=== PATIENT | male | born 1965 | race Caucasian/White ===

== ENCOUNTER 2016-08-29 18:15 | Emergency (ER) | payer BC ==
[~2016-08-29] VITALS: Ht 185.4 cm; Wt 108.9 kg
[2016-08-29 18:15] VITALS: BP 155/111; PULSE 77; RESP 18; TEMP 97.7; O2SAT 96
--- NOTE | 2016-08-29 18:15 | NUR ---
BROUGHT BACK TO BED #4 AND TRIAGED. EVALUATED BY ROSAURA DELA CRUZ, REPORT GIVEN TO ZEN
[2016-08-29] MEDS ORDERED: KETOROLAC TROMETHAMINE 60 MG/2 ML VIAL IM ONE (18:30)
--- NOTE | 2016-08-29 18:50 | NUR ---
Patient transported to radiology via ambulation, accompanied by rad staff.
--- NOTE | 2016-08-29 18:57 | NUR ---
RETURNED TO BED SAFELY
--- NOTE | 2016-08-29 19:15 | NUR ---
Received report from Dariel BLAIR, care endorsed.
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
[2016-08-29] MEDS ORDERED: HYDROcodone/ACETAMIN 10-325 MG TAB PO ONE (20:00)
[2016-08-29 20:30] VITALS: BP 135/95; PULSE 79; RESP 18; TEMP 98; O2SAT 97
--- NOTE | 2016-08-29 20:30 | NUR ---
Patient given written and verbal discharge instructions and verbalizes understanding. ER MD discussed with patient the results and treatment provided. Patient in stable condition. ID arm band removed. Rx of MOTRIN AND NORCO given. Patient educated on pain management and to follow up with PMD. Pain Scale 2/10. Opportunity for questions provided and answered.
== END 2016-08-29 20:30 | disposition home or self-care (01) ==
LOC: SED 18:15
DX: S22.32XA Fracture of one rib, left side, initial encounter for closed fracture (principal); I10 Essential (primary) hypertension; W20.8XXA Other cause of strike by thrown, projected or falling object, initial encounter; Y93.89 Activity, other specified; Y92.89 Other specified places as the place of occurrence of the external cause; Y99.0 Civilian activity done for income or pay
CPT/HCPCS: 71010; 71100; 94010; 96372; 99284; J1885

== ENCOUNTER 2021-08-01 14:45 | Emergency (ER) | payer BC, SELFPAY ==
[~2021-08-01] VITALS: Ht 185.4 cm; Wt 131.5 kg
[2021-08-01 15:11] VITALS: BP_SYST 109
[2021-08-01 15:41] LABS: BASOPHILS % (AUTO) 0.4 % (0.0-2.0); EOSINOPHILS # (AUTO) 0.1 K/uL (0.0-0.4); EOSINOPHILS % (AUTO) 1.4 % (0.0-4.0); HEMATOCRIT 45.2 % (36-54); LYMPHOCYTES # (AUTO) 1.3 K/uL (1.0-5.5); LYMPHOCYTES % (AUTO) 21.6 % (20.5-51.5); MEAN CORPUSCULAR HEMOGLOBIN 31 pg (27-31); MEAN CORPUSCULAR HGB CONC 33 % (32-36); MEAN CORPUSCULAR VOLUME 92 fL (79.0-98.0); MONOCYTES # (AUTO) 0.5 K/uL (0.0-1.0); MONOCYTES % (AUTO) 7.5 % (1.7-9.3); NEUTROPHILS # (AUTO) 4.2 K/uL (1.8-7.7); NEUTROPHILS % (AUTO) 69.1 % (40.0-70.0); PLATELET COUNT (AUTO) 232 K/uL (130-430); RED BLOOD CELL COUNT(AUTO) 4.89 MIL/uL (4.2-6.2); RED CELL DISTRIBUTION WIDTH 13.9 % (9.0-15.0); WHITE BLOOD COUNT (AUTO) 6.1 K/uL (4.8-10.8)
[2021-08-01 16:07] LABS: CALCIUM 8.7 mg/dL (8.4-11.0); CREATININE 1.08 mg/dL (0.55-1.30); POTASSIUM 4.1 mmol/L (3.5-5.1)
[2021-08-01 16:12] LABS: ALBUMIN 3.2 g/dL (3.4-4.8); TOTAL BILIRUBIN 0.2 mg/dL (0.0-1.0)
[2021-08-01 16:30] VITALS: BP_SYST 147
== END 2021-08-01 16:30 | disposition home or self-care (01) ==
LOC: SED 14:45
DX: R55 Syncope and collapse (principal); I10 Essential (primary) hypertension
CPT/HCPCS: 36415; 71045; 80053; 84484; 85025; 93005; 99285

== ENCOUNTER 2023-04-15 13:38 | Inpatient (IN) | payer BC ==
[~2023-04-15] VITALS: Ht 185.4 cm; Wt 120.2 kg
[2023-04-15 14:00] VITALS: BP_SYST 117; PULSE 83; RESP 16; TEMP 97.7; O2SAT 94
[2023-04-15] MEDS ORDERED: ALBUTEROL SULFATE 0.083% 2.5 MG/3 ML VIAL.NEB INH ONE (14:30)
[2023-04-15] MEDS ORDERED: BENZONATATE 100 MG CAPSULE (TESSALON) PO ONE (14:30)
[2023-04-15] MEDS ORDERED: KETOROLAC TROMETHAMINE 30 MG VIAL IM ONE (14:30)
[2023-04-15 14:56] LABS: INFLUENZA TYPE A Negative (NEGATIVE); INFLUENZA TYPE B NEGATIVE (NEGATIVE)
[2023-04-15 15:14] LABS: BASOPHILS % (AUTO) 0.6 % (0.0-2.0); EOSINOPHILS # (AUTO) 0.1 K/uL (0.0-0.4); EOSINOPHILS % (AUTO) 1.6 % (0.0-4.0); HEMATOCRIT 49.4 % (36-54); HEMOGLOBIN 15.9 g/dL (14.0-18.0); LYMPHOCYTES # (AUTO) 1.6 K/uL (1.0-5.5); LYMPHOCYTES % (AUTO) 28.5 % (20.5-51.5); MEAN CORPUSCULAR HEMOGLOBIN 30 pg (27-31); MEAN CORPUSCULAR HGB CONC 32 % (32-36); MEAN CORPUSCULAR VOLUME 93 fL (79.0-98.0); MONOCYTES # (AUTO) 0.9 K/uL (0.0-1.0); MONOCYTES % (AUTO) 15.2 % (1.7-9.3); NEUTROPHILS # (AUTO) 3.1 K/uL (1.8-7.7); NEUTROPHILS % (AUTO) 54.1 % (40.0-70.0); PLATELET COUNT (AUTO) 281 K/uL (130-430); RED CELL DISTRIBUTION WIDTH 13.7 % (9.0-15.0); WHITE BLOOD COUNT (AUTO) 5.7 K/uL (4.8-10.8)
[2023-04-15 15:15] LABS: ABG O2 SAT% ESTIMATE 94.7 % (94.0-100.0); BLOOD GAS BASE EXCESS -1.1 mmol/L (-3.0-3.0); BLOOD GAS HCO3 22.2 mmol/L (21.0-27.0); BLOOD GAS PCO2 33.4 mmHg (32.0-45.0); BLOOD GAS PH 7.441 (7.350-7.450); BLOOD GAS PO2 69.3 mmHg (75.0-100.0)
[2023-04-15 15:17] LABS: ALLEN'S TEST POSITIVE (P)
[2023-04-15 15:20] LABS: ANION GAP 7 (5-15); CALCIUM 9.2 mg/dL (8.4-11.0); CARBON DIOXIDE 30 mmol/L (23-29); CHLORIDE 103 mmol/L (98-107); CREATININE 0.98 mg/dL (0.55-1.30); GFR AFRICAN AMERICAN 101 mL/min (>90); GLUCOSE 81 mg/dL (74-106); POTASSIUM 4.5 mmol/L (3.5-5.1); SODIUM SERUM 140 mmol/L (136-145); UREA NITROGEN, BLOOD 16 mg/dL (8-21)
[2023-04-15 15:22] LABS: GFR NON AFRICAN-AMERICAN 83 mL/min (>90)
[2023-04-15 15:26] LABS: ALANINE AMINOTRANSFERASE 40 U/L (12-78); ALBUMIN 3.4 g/dL (3.4-4.8); ASPARTATE AMINOTRANSFERASE 14 U/L (10-37); TOTAL BILIRUBIN 0.4 mg/dL (0.0-1.0); TOTAL PROTEIN, SERUM 7.7 g/dL (6.4-8.3)
[2023-04-15] MEDS ORDERED: DEXAMETHASONE SOD PHOSPHATE 10 MG/ML VIAL IVP ONE (15:30)
[2023-04-15] MEDS ORDERED: NACL 0.9% 1,000 ML IV ONE (16:00)
[2023-04-15] MEDS ORDERED: cefTRIAXone 1 GM in D5W 50 ML IV ONE (16:15)
[2023-04-15] MEDS ORDERED: AZITHROMYCIN 500 MG in NS 250 ML IV ONE (16:15)
[2023-04-15 16:45] VITALS: PULSE 97; O2SAT 95
[2023-04-15] MEDS ORDERED: cefTRIAXone 1 GM VIAL ONE (16:59)
[2023-04-15 18:49] VITALS: BP_SYST 152; PULSE 65; RESP 18; TEMP 98.2
[2023-04-15 20:00] VITALS: BP_SYST 164; PULSE 70; RESP 18; TEMP 97.8; O2SAT 95
[2023-04-15] MEDS: guaiFENesin ER 600 MG TAB PO SCH (21:56)
[2023-04-15 22:23] VITALS: O2SAT 92
[2023-04-15] MEDS: IPRATROPIUM/ALBUTEROL SULFATE 3 ML AMPUL.NEB (DUONEB) INH PRN (22:23)
[2023-04-16] VITALS (10 sets, daily range): BP systolic 137–167; PULSE 72–89; RESP 16–19; TEMP 97.6–98.6; O2SAT 93–98
[2023-04-16] MEDS: HYDROcodone/ACETAMIN 5-325 MG TAB (NORCO/ VICODIN) PO PRN ×2 (00:03→16:26)
[2023-04-16 06:38] LABS: BASOPHILS % (AUTO) 0.2 % (0.0-2.0); HEMATOCRIT 44.7 % (36-54); HEMOGLOBIN 14.3 g/dL (14.0-18.0); LYMPHOCYTES # (AUTO) 0.6 K/uL (1.0-5.5); LYMPHOCYTES % (AUTO) 10.6 % (20.5-51.5); MEAN CORPUSCULAR HEMOGLOBIN 30 pg (27-31); MEAN CORPUSCULAR HGB CONC 32 % (32-36); MEAN CORPUSCULAR VOLUME 94 fL (79.0-98.0); MONOCYTES # (AUTO) 0.2 K/uL (0.0-1.0); MONOCYTES % (AUTO) 4.1 % (1.7-9.3); NEUTROPHILS # (AUTO) 4.8 K/uL (1.8-7.7); NEUTROPHILS % (AUTO) 85.1 % (40.0-70.0); PLATELET COUNT (AUTO) 250 K/uL (130-430); RED BLOOD CELL COUNT(AUTO) 4.76 MIL/uL (4.2-6.2); RED CELL DISTRIBUTION WIDTH 13.9 % (9.0-15.0); WHITE BLOOD COUNT (AUTO) 5.6 K/uL (4.8-10.8)
[2023-04-16 06:49] LABS: ALBUMIN 2.8 g/dL (3.4-4.8); CALCIUM 8.7 mg/dL (8.4-11.0); CREATININE 0.95 mg/dL (0.55-1.30); POTASSIUM 4.3 mmol/L (3.5-5.1); TOTAL BILIRUBIN 0.2 mg/dL (0.0-1.0); TOTAL PROTEIN, SERUM 6.7 g/dL (6.4-8.3)
[2023-04-16] MEDS: DEXAMETHASONE SOD PHOSPHATE 10 MG/ML VIAL IVP SCH (09:09)
[2023-04-16] MEDS: ASPIRIN 81 MG TAB.CHEW PO SCH (09:09)
[2023-04-16] MEDS: guaiFENesin ER 600 MG TAB PO SCH ×2 (09:10→21:01)
[2023-04-16] MEDS ORDERED: hydrALAZINE HCL 20 MG/ML VIAL IVP PRN (10:45)
[2023-04-16] MEDS ORDERED: guaiFENesin 200 MG/10 ML UDC PO PRN (13:45)
[2023-04-16] MEDS ORDERED: AZITHROMYCIN 500 MG in NS 250 ML IV SCH (15:00)
[2023-04-16] MEDS: IPRATROPIUM/ALBUTEROL SULFATE 3 ML AMPUL.NEB (DUONEB) INH SCH ×3 (15:40→23:00)
[2023-04-16] MEDS ORDERED: guaiFENesin/DEXTROMETHORPHAN 10 ML UDC PO PRN (18:15)
[2023-04-16] MEDS: cefTRIAXone 1 GM in D5W 50 ML IV SCH (21:00)
[2023-04-16] MEDS: MILK OF MAGNESIA 30 ML UDC PO PRN (21:01)
[2023-04-16] MEDS: DOXYCYCLINE HYCLATE 100 MG CAPSULE PO SCH (21:01)
[2023-04-16] MEDS: ASCORBIC ACID 500 MG TABLET PO SCH (23:28)
[2023-04-16] MEDS: ZOLPIDEM TARTRATE 5 MG TABLET PO PRN (23:29)
[2023-04-17] VITALS (9 sets, daily range): BP systolic 141–158; PULSE 63–90; RESP 18–19; TEMP 97–97.6; O2SAT 93–97
[2023-04-17] MEDS: IPRATROPIUM/ALBUTEROL SULFATE 3 ML AMPUL.NEB (DUONEB) INH SCH ×6 (03:00→23:00)
[2023-04-17 08:21] LABS: BASOPHILS % (AUTO) 0.2 % (0.0-2.0); EOSINOPHILS % (AUTO) 0.1 % (0.0-4.0); HEMATOCRIT 47.5 % (36-54); HEMOGLOBIN 15.3 g/dL (14.0-18.0); LYMPHOCYTES # (AUTO) 1.7 K/uL (1.0-5.5); LYMPHOCYTES % (AUTO) 15.4 % (20.5-51.5); MEAN CORPUSCULAR HEMOGLOBIN 30 pg (27-31); MEAN CORPUSCULAR HGB CONC 32 % (32-36); MEAN CORPUSCULAR VOLUME 93 fL (79.0-98.0); MONOCYTES # (AUTO) 0.9 K/uL (0.0-1.0); MONOCYTES % (AUTO) 8.5 % (1.7-9.3); NEUTROPHILS # (AUTO) 8.5 K/uL (1.8-7.7); NEUTROPHILS % (AUTO) 75.8 % (40.0-70.0); PLATELET COUNT (AUTO) 277 K/uL (130-430); WHITE BLOOD COUNT (AUTO) 11.2 K/uL (4.8-10.8)
[2023-04-17 08:32] LABS: CALCIUM 9.2 mg/dL (8.4-11.0); CREATININE 0.82 mg/dL (0.55-1.30); POTASSIUM 4.8 mmol/L (3.5-5.1)
[2023-04-17] MEDS: ASPIRIN 81 MG TAB.CHEW PO SCH (09:31)
[2023-04-17] MEDS: DEXAMETHASONE SOD PHOSPHATE 10 MG/ML VIAL IVP SCH (09:31)
[2023-04-17] MEDS: DOXYCYCLINE HYCLATE 100 MG CAPSULE PO SCH ×2 (09:31→21:16)
[2023-04-17] MEDS: guaiFENesin ER 600 MG TAB PO SCH ×2 (09:31→21:16)
[2023-04-17] MEDS: ASCORBIC ACID 500 MG TABLET PO SCH (09:47)
[2023-04-17] MEDS ORDERED: lisinopriL 20 MG TABLET PO ONE (10:30)
[2023-04-17] MEDS: cefTRIAXone 1 GM in D5W 50 ML IV SCH (17:13)
[2023-04-17] MEDS: MILK OF MAGNESIA 30 ML UDC PO PRN (21:16)
[2023-04-17] MEDS: ZOLPIDEM TARTRATE 5 MG TABLET PO PRN (21:16)
[2023-04-18] VITALS (9 sets, daily range): BP systolic 129–147; PULSE 63–99; RESP 17–19; TEMP 97–98.2; O2SAT 90–97
[2023-04-18] MEDS: IPRATROPIUM/ALBUTEROL SULFATE 3 ML AMPUL.NEB (DUONEB) INH SCH ×6 (03:00→23:00)
[2023-04-18 05:38] LABS: BASOPHILS # (AUTO) 0.1 K/uL (0.0-0.2); BASOPHILS % (AUTO) 0.8 % (0.0-2.0); HEMATOCRIT 46.4 % (36-54); LYMPHOCYTES # (AUTO) 1.8 K/uL (1.0-5.5); LYMPHOCYTES % (AUTO) 16.1 % (20.5-51.5); MEAN CORPUSCULAR HEMOGLOBIN 30 pg (27-31); MEAN CORPUSCULAR HGB CONC 32 % (32-36); MEAN CORPUSCULAR VOLUME 93 fL (79.0-98.0); MONOCYTES # (AUTO) 0.9 K/uL (0.0-1.0); MONOCYTES % (AUTO) 8.3 % (1.7-9.3); NEUTROPHILS # (AUTO) 8.2 K/uL (1.8-7.7); NEUTROPHILS % (AUTO) 74.8 % (40.0-70.0); PLATELET COUNT (AUTO) 283 K/uL (130-430); RED CELL DISTRIBUTION WIDTH 13.9 % (9.0-15.0)
[2023-04-18 06:00] LABS: CALCIUM 9.1 mg/dL (8.4-11.0); CREATININE 0.87 mg/dL (0.55-1.30); POTASSIUM 3.9 mmol/L (3.5-5.1)
[2023-04-18] MEDS: guaiFENesin ER 600 MG TAB PO SCH ×2 (09:09→21:37)
[2023-04-18] MEDS: ASCORBIC ACID 500 MG TABLET PO SCH (09:09)
[2023-04-18] MEDS: ASPIRIN 81 MG TAB.CHEW PO SCH (09:09)
[2023-04-18] MEDS: DEXAMETHASONE SOD PHOSPHATE 10 MG/ML VIAL IVP SCH (09:09)
[2023-04-18] MEDS: DOXYCYCLINE HYCLATE 100 MG CAPSULE PO SCH ×2 (09:10→21:37)
[2023-04-18] MEDS: lisinopriL 20 MG TABLET PO SCH (09:10)
[2023-04-18] MEDS: cefTRIAXone 1 GM in D5W 50 ML IV SCH (18:07)
[2023-04-18] MEDS: ZOLPIDEM TARTRATE 5 MG TABLET PO PRN (21:36)
[2023-04-18] MEDS: HYDROcodone/ACETAMIN 5-325 MG TAB (NORCO/ VICODIN) PO PRN (21:37)
[2023-04-19] VITALS (8 sets, daily range): BP systolic 119–153; PULSE 73–88; RESP 16–20; TEMP 97.3–98.3; O2SAT 73–98
[2023-04-19] MEDS: IPRATROPIUM/ALBUTEROL SULFATE 3 ML AMPUL.NEB (DUONEB) INH SCH ×6 (03:00→23:00)
[2023-04-19 06:18] LABS: BASOPHILS % (AUTO) 0.2 % (0.0-2.0); HEMATOCRIT 46.2 % (36-54); HEMOGLOBIN 14.8 g/dL (14.0-18.0); LYMPHOCYTES # (AUTO) 1.8 K/uL (1.0-5.5); LYMPHOCYTES % (AUTO) 15.9 % (20.5-51.5); MEAN CORPUSCULAR HEMOGLOBIN 30 pg (27-31); MEAN CORPUSCULAR HGB CONC 32 % (32-36); MEAN CORPUSCULAR VOLUME 94 fL (79.0-98.0); MONOCYTES # (AUTO) 1.1 K/uL (0.0-1.0); MONOCYTES % (AUTO) 9.3 % (1.7-9.3); NEUTROPHILS # (AUTO) 8.6 K/uL (1.8-7.7); NEUTROPHILS % (AUTO) 74.6 % (40.0-70.0); PLATELET COUNT (AUTO) 271 K/uL (130-430); WHITE BLOOD COUNT (AUTO) 11.6 K/uL (4.8-10.8)
[2023-04-19 06:44] LABS: CALCIUM 8.9 mg/dL (8.4-11.0); CREATININE 0.86 mg/dL (0.55-1.30); POTASSIUM 4.3 mmol/L (3.5-5.1)
[2023-04-19] MEDS: lisinopriL 20 MG TABLET PO SCH (09:30)
[2023-04-19] MEDS: guaiFENesin ER 600 MG TAB PO SCH ×2 (09:31→21:28)
[2023-04-19] MEDS: DOXYCYCLINE HYCLATE 100 MG CAPSULE PO SCH ×2 (09:31→21:28)
[2023-04-19] MEDS: ASCORBIC ACID 500 MG TABLET PO SCH (09:31)
[2023-04-19] MEDS: ASPIRIN 81 MG TAB.CHEW PO SCH (09:31)
[2023-04-19] MEDS: DEXAMETHASONE SOD PHOSPHATE 10 MG/ML VIAL IVP SCH (09:32)
[2023-04-19] MEDS: ENOXAPARIN SODIUM 30 MG/0.3 ML SYRINGE SUBCUT SCH (09:34)
[2023-04-19] MEDS: MILK OF MAGNESIA 30 ML UDC PO PRN (17:20)
[2023-04-19] MEDS: cefTRIAXone 1 GM in D5W 50 ML IV SCH (21:27)
[2023-04-19] MEDS: ZOLPIDEM TARTRATE 5 MG TABLET PO PRN (21:28)
[2023-04-19] MEDS: HYDROcodone/ACETAMIN 5-325 MG TAB (NORCO/ VICODIN) PO PRN (21:28)
[2023-04-20] VITALS (8 sets, daily range): BP systolic 138–156; PULSE 58–90; RESP 14–22; TEMP 97.1–98.8; O2SAT 94–98
[2023-04-20] MEDS: IPRATROPIUM/ALBUTEROL SULFATE 3 ML AMPUL.NEB (DUONEB) INH SCH ×6 (03:00→23:00)
[2023-04-20 06:57] LABS: BASOPHILS % (AUTO) 0.1 % (0.0-2.0); EOSINOPHILS % (AUTO) 0.1 % (0.0-4.0); HEMATOCRIT 45.9 % (36-54); LYMPHOCYTES # (AUTO) 1.9 K/uL (1.0-5.5); LYMPHOCYTES % (AUTO) 16.4 % (20.5-51.5); MEAN CORPUSCULAR HEMOGLOBIN 31 pg (27-31); MEAN CORPUSCULAR HGB CONC 33 % (32-36); MEAN CORPUSCULAR VOLUME 93 fL (79.0-98.0); MONOCYTES # (AUTO) 0.9 K/uL (0.0-1.0); MONOCYTES % (AUTO) 7.9 % (1.7-9.3); NEUTROPHILS # (AUTO) 8.6 K/uL (1.8-7.7); NEUTROPHILS % (AUTO) 75.5 % (40.0-70.0); PLATELET COUNT (AUTO) 302 K/uL (130-430); RED BLOOD CELL COUNT(AUTO) 4.93 MIL/uL (4.2-6.2); RED CELL DISTRIBUTION WIDTH 13.7 % (9.0-15.0); WHITE BLOOD COUNT (AUTO) 11.3 K/uL (4.8-10.8)
[2023-04-20 07:20] LABS: CREATININE 0.85 mg/dL (0.55-1.30); POTASSIUM 4.5 mmol/L (3.5-5.1); TOTAL BILIRUBIN 0.3 mg/dL (0.0-1.0); TOTAL PROTEIN, SERUM 6.7 g/dL (6.4-8.3)
[2023-04-20] MEDS: lisinopriL 20 MG TABLET PO SCH (09:26)
[2023-04-20] MEDS: ASPIRIN 81 MG TAB.CHEW PO SCH (09:26)
[2023-04-20] MEDS: DEXAMETHASONE SOD PHOSPHATE 10 MG/ML VIAL IVP SCH (09:27)
[2023-04-20] MEDS: ENOXAPARIN SODIUM 30 MG/0.3 ML SYRINGE SUBCUT SCH (09:27)
[2023-04-20] MEDS: guaiFENesin ER 600 MG TAB PO SCH ×2 (09:27→22:53)
[2023-04-20] MEDS: ASCORBIC ACID 500 MG TABLET PO SCH (09:27)
[2023-04-20] MEDS: DOXYCYCLINE HYCLATE 100 MG CAPSULE PO SCH ×2 (09:27→22:53)
[2023-04-20] MEDS: cefTRIAXone 1 GM in D5W 50 ML IV SCH (17:45)
[2023-04-20] MEDS: ZOLPIDEM TARTRATE 5 MG TABLET PO PRN (22:57)
[2023-04-20] MEDS: HYDROcodone/ACETAMIN 5-325 MG TAB (NORCO/ VICODIN) PO PRN (22:57)
[2023-04-21] VITALS (10 sets, daily range): BP systolic 101–165; PULSE 80–90; RESP 18–20; TEMP 97.1–97.7; O2SAT 94–98
[2023-04-21] MEDS: IPRATROPIUM/ALBUTEROL SULFATE 3 ML AMPUL.NEB (DUONEB) INH SCH ×6 (03:00→20:24)
[2023-04-21 06:06] LABS: BASOPHILS % (AUTO) 0.1 % (0.0-2.0); HEMATOCRIT 45.3 % (36-54); HEMOGLOBIN 14.7 g/dL (14.0-18.0); LYMPHOCYTES # (AUTO) 1.6 K/uL (1.0-5.5); LYMPHOCYTES % (AUTO) 12.3 % (20.5-51.5); MEAN CORPUSCULAR HEMOGLOBIN 31 pg (27-31); MEAN CORPUSCULAR HGB CONC 33 % (32-36); MEAN CORPUSCULAR VOLUME 94 fL (79.0-98.0); MONOCYTES # (AUTO) 1.1 K/uL (0.0-1.0); MONOCYTES % (AUTO) 8.3 % (1.7-9.3); NEUTROPHILS # (AUTO) 10.2 K/uL (1.8-7.7); NEUTROPHILS % (AUTO) 79.3 % (40.0-70.0); PLATELET COUNT (AUTO) 293 K/uL (130-430); RED BLOOD CELL COUNT(AUTO) 4.83 MIL/uL (4.2-6.2); WHITE BLOOD COUNT (AUTO) 12.8 K/uL (4.8-10.8)
[2023-04-21 06:32] LABS: ALBUMIN 2.9 g/dL (3.4-4.8); CALCIUM 8.9 mg/dL (8.4-11.0); CREATININE 0.88 mg/dL (0.55-1.30); POTASSIUM 4.8 mmol/L (3.5-5.1); TOTAL BILIRUBIN 0.2 mg/dL (0.0-1.0); TOTAL PROTEIN, SERUM 6.4 g/dL (6.4-8.3)
[2023-04-21] MEDS: guaiFENesin ER 600 MG TAB PO SCH ×2 (09:18→21:28)
[2023-04-21] MEDS: ASPIRIN 81 MG TAB.CHEW PO SCH (09:18)
[2023-04-21] MEDS: ENOXAPARIN SODIUM 30 MG/0.3 ML SYRINGE SUBCUT SCH (09:18)
[2023-04-21] MEDS: lisinopriL 20 MG TABLET PO SCH (09:19)
[2023-04-21] MEDS: ASCORBIC ACID 500 MG TABLET PO SCH (09:19)
[2023-04-21] MEDS: DOXYCYCLINE HYCLATE 100 MG CAPSULE PO SCH ×2 (09:19→21:28)
[2023-04-21] MEDS: DEXAMETHASONE SOD PHOSPHATE 10 MG/ML VIAL IVP SCH (09:21)
[2023-04-21] MEDS: IPRATROPIUM/ALBUTEROL SULFATE 3 ML AMPUL.NEB (DUONEB) INH PRN ×2 (11:53→13:14)
[2023-04-21] MEDS: cefTRIAXone 1 GM in D5W 50 ML IV SCH (17:06)
[2023-04-21] MEDS: ZOLPIDEM TARTRATE 5 MG TABLET PO PRN (21:28)
[2023-04-21] MEDS: HYDROcodone/ACETAMIN 5-325 MG TAB (NORCO/ VICODIN) PO PRN (21:41)
[2023-04-22] VITALS (11 sets, daily range): BP systolic 129–158; PULSE 75–97; RESP 18–22; TEMP 97.7–98.4; O2SAT 91–96
[2023-04-22] MEDS: IPRATROPIUM/ALBUTEROL SULFATE 3 ML AMPUL.NEB (DUONEB) INH SCH ×6 (03:01→22:55)
[2023-04-22 06:46] LABS: BASOPHILS % (AUTO) 0.3 % (0.0-2.0); EOSINOPHILS % (AUTO) 0.1 % (0.0-4.0); HEMATOCRIT 45.9 % (36-54); HEMOGLOBIN 14.7 g/dL (14.0-18.0); LYMPHOCYTES % (AUTO) 14.8 % (20.5-51.5); MEAN CORPUSCULAR HEMOGLOBIN 30 pg (27-31); MEAN CORPUSCULAR HGB CONC 32 % (32-36); MEAN CORPUSCULAR VOLUME 94 fL (79.0-98.0); MONOCYTES # (AUTO) 0.9 K/uL (0.0-1.0); MONOCYTES % (AUTO) 6.8 % (1.7-9.3); NEUTROPHILS # (AUTO) 10.8 K/uL (1.8-7.7); PLATELET COUNT (AUTO) 256 K/uL (130-430); RED CELL DISTRIBUTION WIDTH 13.9 % (9.0-15.0); WHITE BLOOD COUNT (AUTO) 13.8 K/uL (4.8-10.8)
[2023-04-22 07:16] LABS: ALBUMIN 2.8 g/dL (3.4-4.8); CALCIUM 8.7 mg/dL (8.4-11.0); CREATININE 0.84 mg/dL (0.55-1.30); POTASSIUM 4.3 mmol/L (3.5-5.1); TOTAL BILIRUBIN 0.2 mg/dL (0.0-1.0); TOTAL PROTEIN, SERUM 6.4 g/dL (6.4-8.3)
[2023-04-22] MEDS: lisinopriL 20 MG TABLET PO SCH (08:42)
[2023-04-22] MEDS: DEXAMETHASONE SOD PHOSPHATE 10 MG/ML VIAL IVP SCH (08:42)
[2023-04-22] MEDS: ENOXAPARIN SODIUM 30 MG/0.3 ML SYRINGE SUBCUT SCH (08:43)
[2023-04-22] MEDS: ASPIRIN 81 MG TAB.CHEW PO SCH (08:43)
[2023-04-22] MEDS: ASCORBIC ACID 500 MG TABLET PO SCH (08:43)
[2023-04-22] MEDS: DOXYCYCLINE HYCLATE 100 MG CAPSULE PO SCH ×2 (08:43→21:34)
[2023-04-22] MEDS: guaiFENesin ER 600 MG TAB PO SCH ×2 (08:43→21:34)
[2023-04-22] MEDS: ZOLPIDEM TARTRATE 5 MG TABLET PO PRN (21:42)
[2023-04-23] VITALS (7 sets, daily range): BP systolic 126–156; PULSE 90–96; RESP 18–19; TEMP 96.7–98.1; O2SAT 93–97
[2023-04-23] MEDS: IPRATROPIUM/ALBUTEROL SULFATE 3 ML AMPUL.NEB (DUONEB) INH SCH ×4 (03:04→15:00)
[2023-04-23 07:11] LABS: BASOPHILS # (AUTO) 0.1 K/uL (0.0-0.2); BASOPHILS % (AUTO) 0.4 % (0.0-2.0); EOSINOPHILS # (AUTO) 0.1 K/uL (0.0-0.4); EOSINOPHILS % (AUTO) 0.7 % (0.0-4.0); HEMATOCRIT 49.3 % (36-54); HEMOGLOBIN 15.6 g/dL (14.0-18.0); LYMPHOCYTES # (AUTO) 1.6 K/uL (1.0-5.5); LYMPHOCYTES % (AUTO) 9.9 % (20.5-51.5); MEAN CORPUSCULAR HEMOGLOBIN 30 pg (27-31); MEAN CORPUSCULAR HGB CONC 32 % (32-36); MEAN CORPUSCULAR VOLUME 95 fL (79.0-98.0); MONOCYTES # (AUTO) 1.3 K/uL (0.0-1.0); MONOCYTES % (AUTO) 8.1 % (1.7-9.3); NEUTROPHILS # (AUTO) 12.7 K/uL (1.8-7.7); NEUTROPHILS % (AUTO) 80.9 % (40.0-70.0); PLATELET COUNT (AUTO) 277 K/uL (130-430); RED BLOOD CELL COUNT(AUTO) 5.17 MIL/uL (4.2-6.2); RED CELL DISTRIBUTION WIDTH 14.4 % (9.0-15.0); WHITE BLOOD COUNT (AUTO) 15.7 K/uL (4.8-10.8)
[2023-04-23] MEDS: guaiFENesin ER 600 MG TAB PO SCH (08:31)
[2023-04-23] MEDS: ASCORBIC ACID 500 MG TABLET PO SCH (08:31)
[2023-04-23] MEDS: ASPIRIN 81 MG TAB.CHEW PO SCH (08:31)
[2023-04-23] MEDS: ENOXAPARIN SODIUM 30 MG/0.3 ML SYRINGE SUBCUT SCH (08:32)
[2023-04-23] MEDS: lisinopriL 20 MG TABLET PO SCH (08:32)
[2023-04-23 08:36] LABS: ALBUMIN 3.1 g/dL (3.4-4.8); CALCIUM 8.8 mg/dL (8.4-11.0); CREATININE 1.01 mg/dL (0.55-1.30); POTASSIUM 4.5 mmol/L (3.5-5.1); TOTAL BILIRUBIN 0.2 mg/dL (0.0-1.0); TOTAL PROTEIN, SERUM 6.4 g/dL (6.4-8.3)
[2023-04-23] MEDS ORDERED: DECADRON 4 MG TABLET PO SCH (09:00)
[2023-04-23] MEDS ORDERED: IPRA3AMP9 INH (12:52)
[2023-04-23] MEDS ORDERED: GUAI600T45 PO (12:52)
[2023-04-23] MEDS ORDERED: LISI20TA30 PO (12:52)
[2023-04-23] MEDS ORDERED: LEVO-62 PO (12:52)
[2023-04-23] MEDS ORDERED: METH-776 PO (12:52)
[2023-04-23] MEDS ORDERED: ASA81 PO (12:52)
[2023-04-23] MEDS ORDERED: ASC500 PO (12:52)
== END 2023-04-23 15:05 | disposition home or self-care (01) | DRG 177 ==
LOC: SED 13:38 → STU 16:31 → SMU 04-18 13:18
PROVIDERS: ADMIT Family Medicine; ATTEND Family Medicine
PROC: XW033E5 Introduction of Remdesivir Anti-infective into Peripheral Vein, Percutaneous Approach, New Technology Group 5 (ICD-10-PCS; principal; 2023-04-18)
DX: U07.1 COVID-19 (principal); J12.82 Pneumonia due to coronavirus disease 2019; J96.01 Acute respiratory failure with hypoxia; E87.20 Acidosis, unspecified; J44.1 Chronic obstructive pulmonary disease with (acute) exacerbation; J44.0 Chronic obstructive pulmonary disease with (acute) lower respiratory infection; J98.11 Atelectasis; I10 Essential (primary) hypertension; E66.9 Obesity, unspecified; J20.9 Acute bronchitis, unspecified; K59.00 Constipation, unspecified; Z68.35 Body mass index [BMI] 35.0-35.9, adult
CPT/HCPCS: 36415; 36600; 71045; 80048; 80053; 82803; 83605; 83880; 84484; 85025; 85379; 87040; 87635-QW; 93005; 94640; 94760; 96361; 96365; 96372; 96375; 99285; G0378; J0456; J0696; J1100; J1650; J1885; J7050; J7060; J8540